=== PATIENT | female | born 1950 | race Caucasian/White ===

== ENCOUNTER → 2017-08-31 | Outpatient (CLI) | payer MEDICARE, BC ==
[~2017-08-31] MED LIST: ESOMEPRAZOLE MA40 MG PO; LEVOTHYROXINE100 MCG PO; LORAZEPAM0.5 MG PO
== END | disposition home or self-care (01) ==
LOC: CDC 14:26
DX: Z01.810 Encounter for preprocedural cardiovascular examination (principal); R10.2 Pelvic and perineal pain
CPT/HCPCS: 93000